=== PATIENT | female | born 1960 | race Caucasian/White ===

== ENCOUNTER 2017-10-15 09:02 | Emergency (ER) | payer OTHER ==
[2017-10-15 09:08] VITALS: BP 117/72
[2017-10-15] MEDS ORDERED: TDAP ADULT 0.5 ML INJ (BOOSTRIX) IM ONE (09:23)
--- NOTE | 2017-10-15 09:25 | EDPHY ---
H & P Time Seen by Provider: 10/15/17 09:14 HPI/ROS: CHIEF COMPLAINT: Right eyebrow laceration HISTORY OF PRESENT ILLNESS: 57-year-old female no anticoagulant use history states that last evening approximately 12 hr ago she opened a heavy door which impacted her right lateral eyebrow sustaining laceration. No glass fracturing. No loss of consciousness. No diplopia. No headache no nausea no vomiting. No midline C-spine pain. No altered mentation. Here with her . Tetanus is out-of-date . patient requesting plastic surgery consultation PHYSICAL EXAM 1) GENERAL: Well-developed, well-nourished, alert and oriented. Appears to be in no acute distress. Answering questions appropriately. 2) HEAD: Normocephalic, right lateral eyebrow 2.5 cm laceration well-demarcated , linear laceration 3) HEENT: Pupils equal, round, reactive to light bilaterally. Negative Horners. Nasopharynx, oropharynx, clear. No deformity or angulation of nose. No septal hematoma. No rhinorrhea. No oral trauma. Extraocular movements intact and do not elicit diplopia or abnormal gaze. Ears bilaterally with normal tympanic membranes. No hemotympanum. No fluid or blood in the external auditory canal. No raccoon eyes. No Sauceda sign. Teeth are normally aligned with no gross malocclusion, TMJ bilaterally nontender, facial bones nontender including the zygomatic arch, maxilla mandible. 4) NECK: No cervical collar is on. Posterior cervical spine is nontender, no stepoff, no effusion. Full range of motion which does not elicit any midline cervical spine pain, no posterior midline tenderness, no step-off. Smoking Status: Never smoked Constitutional: Initial Vital Signs Temperature (C) 36.5 C 10/15/17 09:05 Heart Rate 55 L 10/15/17 09:05 Respiratory Rate 16 10/15/17 09:05 Blood Pressure 117/72 10/15/17 09:05 O2 Sat (%) 96 10/15/17 09:05 O2 Delivery Mode Room Air Allergies/Adverse Reactions: No Known Allergies Allergy (Unverified 10/15/17 09:05) MDM/Departure - MDM Medications Given: Discontinued Medications Diphtheria/Tetanus/Acell Pertussis (Boostrix) 0.5 ml IM .ONCE ONE Stop: 10/15/17 09:24 Last Admin: 10/15/17 09:41 Dose: 0.5 ml ED Course/Re-evaluation: 9:41 a.m.: Patient's tetanus has been updated, her wound has been anesthetized and cleaned in the ER after I applied 1% lidocaine with epinephrine.. She has requested plastic surgery consultation. I consulted with on-call Plastic surgery Dr. Cem Garcia at this time and he requests patient come to his office to evaluate the wound and perform wound closure. Discussed with the patient she is agreeable with this plan. Regarding her blunt head injury doubt intracranial hemorrhage, doubt orbital fracture. I do not think that imaging of the head or maxillofacial region is indicated. - Depart Disposition: Home, Routine, Self-Care Clinical Impression: Laceration of eyebrow Qualifiers: Encounter type: initial encounter Laterality: right Qualified Code(s): S01.111A - Laceration without foreign body of right eyelid and periocular area, initial encounter Condition: Good Instructions: Laceration (ED) Additional Instructions: Go directly to Dr. Cem Garcia's office. He is expecting you. Referrals: Cem Garcia MD [Medical Doctor] - 10/15/17 10:00 am
[2017-10-15] MEDS ORDERED: LET GEL TOPICAL 1 EA SYR TP ONE (09:45)
== END 2017-10-15 09:56 | disposition home or self-care (01) ==
DX: S01.111A Laceration without foreign body of right eyelid and periocular area, initial encounter (principal); Z23 Encounter for immunization; W22.03XA Walked into furniture, initial encounter; Y99.8 Other external cause status; Y93.89 Activity, other specified

== ENCOUNTER → 2018-08-03 | Outpatient (CLI) | payer OTHER | LOC: FIMAGING 12:16 | PROVIDERS: ATTEND Obstetrics & Gynecology | DX: Z12.31 Encounter for screening mammogram for malignant neoplasm of breast (principal) ==

== ENCOUNTER 2018-08-08 11:47 | Emergency (ER) | payer OTHER ==
--- NOTE | 2018-08-08 12:25 | EDPHY ---
General Time Seen by Provider: 08/08/18 12:00 Narrative: CLINICAL IMPRESSION: Closed right 5th metatarsal fracture ASSESSMENT/PLAN: 58-year-old female presents with acute right foot pain after slipping on the steps outside her home today. She has obvious bruising to lateral malleolus extending into the lateral aspect of the right foot with x-rays positive for a transverse, displaced fracture of the right 5th metatarsal. Distal neurovascular exam is intact. Patient was placed in a [employer] walking boot. She has a local orthopedic provider and will plan follow-up this week. Pain medication prescribed. Rice treatment reviewed, warning signs return to ED sooner discussed discharge. DIFFERENTIAL DX: Differential includes but not limited to acute fracture, strain/sprain, joint dislocation, soft tissue contusion ED PROCEDURES: Procedure: Splint placement. A Logan boot splint was applied to right foot by electrical technology instructor, supervised by myself. After application of the splint I returned and re-examined the patient. The splint was adequately immobilizing the joint and distal to the splint the patient's circulation and sensation was intact. ED COURSE: 12:00 p.m.: X-rays discussed with patient. Obvious midshaft displaced transverse fracture of the right 5th metatarsal. No evidence of distal fib or tib fracture. Logan boot ordered. Patient is established with [facility]. CHIEF COMPLAINT: Right foot and ankle pain HPI: 58-year-old female presents to the emergency department with acute right ankle and foot pain after slipping on some steps outside her home today. Patient reports the pain was so bad that she "passed out". She has been unable to walk. She did he reports hearing a pop. There are no open wounds. No reported numbness or loss of sensation to the foot. She has had prior left ankle surgery. No reports of lower leg or knee pain. PAST MEDICAL HISTORY: [ None reported Pertinent Past Surgical History: Prior left ankle surgery and ACL surgery Social History: , here with her REVIEW OF SYSTEMS: All other systems negative Constitutional: No fever, no chills Musculoskeletal: No deformity, + joint pain Skin: No rashes, color change or open wounds. Neurological: No sensory loss or weakness. PHYSICAL EXAM: General Appearance: Alert, oriented, appropriate for age, cooperative, appears uncomfortable, well hydrated, non-toxic appearing, VSS, no hypoxia. Neurological: Alert and oriented x 3, normal sensation and strength of extremities Skin: Warm, dry, no rashes, no nodules on palpation. Musculoskeletal: Swelling over right lateral malleolus and proximal right 5th metatarsal. No open wounds. Mild bruising noted. Distal neurovascular exam intact. Patient is unable to bear weight. MEDICAL DECISION MAKING: Patient was seen independently. Secondary supervising physician at time of evaluation was Dr. Pina . Diagnosis: Closed right 5th metatarsal fracture. New, requires workup Summary: See assessment and plan for summary of ED visit Independent visualization of images, tracing, or specimens yes. Patient Progress: Stable for discharge. - Diagnostics Imaging Results: Imaging Impressions Ankle X-Ray 08/08/18 11:59 Impression: Negative for fracture. 3 Views Right Foot: Reason for examination: Pain following trauma. Findings: There is a comminuted, mildly displaced and minimally angulated fracture of the shaft of the fifth metatarsal. No other fracture is seen. Hallux valgus deformity is noted. Impression: 1. Fifth metatarsal fracture. 2. Hallux valgus deformity... Foot X-Ray 08/08/18 12:06 Impression: Negative for fracture. 3 Views Right Foot: Reason for examination: Pain following trauma. Findings: There is a comminuted, mildly displaced and minimally angulated fracture of the shaft of the fifth metatarsal. No other fracture is seen. Hallux valgus deformity is noted. Impression: 1. Fifth metatarsal fracture. 2. Hallux valgus deformity... - History Smoking Status: Never smoked - Objective Vital Signs: Initial Vital Signs Temperature (C) 36.4 C 08/08/18 11:55 Heart Rate 65 08/08/18 11:55 Respiratory Rate 16 08/08/18 11:55 Blood Pressure 120/76 08/08/18 11:55 O2 Sat (%) 96 08/08/18 11:55 O2 Delivery Mode Room Air Allergies/Adverse Reactions: No Known Allergies Allergy (Verified 08/08/18 11:53) Home Medications: Medication Instructions Recorded Hydrocodone/APAP 325 [Juniata 1 - 2 tab PO Q4H PRN #10 tab 08/08/18 5/325 (*)] Departure - Departure Disposition: Home, Routine, Self-Care Clinical Impression: Fracture of fifth metatarsal bone of right foot Qualifiers: Encounter type: initial encounter Fracture type: closed Fracture alignment: displaced Qualified Code(s): S92.351A - Displaced fracture of fifth metatarsal bone, right foot, initial encounter for closed fracture Condition: Good Instructions: Foot Fracture in Adults (ED) Additional Instructions: DISCHARGE INSTRUCTIONS FROM YOUR DOCTOR Thank you for visiting our emergency department today. You were treated by a physician school psychologist assistant today and your case was reviewed with our ED Attending physician. Please keep in mind that discharge from the emergency department does not mean that there is nothing wrong - it simply means that we have not identified an emergency condition that requires further evaluation or treatment in the hospital. You should always plan to follow up with primary care for re- evaluation of your condition in the next 2-3 days. If you have been referred to a specialist, please call as soon as possible (today or tomorrow) to schedule your follow up appointment at the appropriate time. X-RAY SHOW FRACTURE OF THE RIGHT 5TH METATARSAL. A BOOT WAS PLACED. PLEASE DO NOT PUT WEIGHT ON THE FOOT. USE CRUTCHES. FOLLOW UP WITH ORTHOPEDICS EARLY THIS WEEK. REFERRAL WAS GIVEN. REST AND ELEVATE THE AFFECTED EXTREMITY MUCH POSSIBLE. ICE THE AFFECTED AREAS 20 MIN ON, 20 MIN OFF FOR THE NEXT SEVERAL DAYS. RETURN TO EMERGENCY DEPARTMENT IMMEDIATELY FOR INCREASED PAIN, LOSS OF SENSATION TO FOOT OR TOES, SIGNIFICANT SWELLING TO LOWER LEG, FEVER OR ANY OTHER CONCERN. People present with illnesses and injuries in different ways, and it is always possible that we have missed something. You may always return for re-evaluation if symptoms worsen or if they are not improving or if you develop new/different symptoms. Again, thank you for choosing our emergency department. We hope that you feel better. Referrals: Susan Nicholson MD [Primary Care Provider] - As per Instructions Emnauel South MD [Medical Doctor] - 2-3 days, call for appt. Prescriptions: Hydrocodone/APAP 5/325 [Juniata 5/325 (*)] 1 - 2 tab PO Q4H PRN #10 tab PRN Reason: Pain, Moderate
[2018-08-08 12:36] VITALS: BP 120/79
== END 2018-08-08 12:51 | disposition home or self-care (01) ==
DX: S92.351A Displaced fracture of fifth metatarsal bone, right foot, initial encounter for closed fracture (principal); M20.11 Hallux valgus (acquired), right foot; W10.8XXA Fall (on) (from) other stairs and steps, initial encounter; Y92.009 Unspecified place in unspecified non-institutional (private) residence as the place of occurrence of the external cause
CPT/HCPCS: L4386